=== PATIENT | male | born 1990 | race Caucasian/White ===

== ENCOUNTER 2017-09-15 15:32 | Emergency (ER) | payer MEDICAID, OTHER ==
[~2017-09-15] VITALS: Ht 182.9 cm; Wt 78.5 kg
--- NOTE | 2017-09-15 15:32 | NUR ---
RIGHT SIDE UPPER RIB CAGE PAIN WHEN TAKING DEEP BREATH x 2 DAYS. PLACED ON MONITOR. AWAITING MD ORDER
--- NOTE | 2017-09-15 16:36 | NUR ---
PT TAKEN TO XRAY
[2017-09-15] MEDS ORDERED: IBUPROFEN 600 MG TABLET PO ONE ×2 (16:54→17:00)
[2017-09-15 17:10] VITALS: BP 115/76
== END 2017-09-15 17:11 | disposition home or self-care (01) ==
LOC: ER 15:41
DX: R07.89 Other chest pain (principal); Z90.49 Acquired absence of other specified parts of digestive tract; F12.10 Cannabis abuse, uncomplicated
CPT/HCPCS: 71020; 99284; A4606; Z7610